=== PATIENT | female | born 1935 | race African-American/Black ===

== ENCOUNTER 2017-01-31 22:39 | Observation (INO) | payer MEDICARE ==
[~2017-01-31] VITALS: Ht 162.6 cm; Wt 70.0 kg
[~2017-01-31 22:39] MED LIST: ATOR40TA PO; CLOP75 PO; GLUCTAB PO; HYDR-2768 PO; HYDR10SO PO; SYNT25TA PO; ULTR50TA PO
[2017-01-31 22:42] VITALS: BP 185/88; PULSE 109; RESP 20; TEMP 101.7; O2SAT 100
[2017-01-31] MEDS ORDERED: NITROGLYCERIN 0.4 MG SL 25 TABS/BTL SL ONE (22:56)
[2017-01-31 23:02] VITALS: BP 133/99; PULSE 117; RESP 22; O2SAT 98
[2017-01-31] MEDS ORDERED: SODIUM CHLORIDE 0.9% FLUSH 10 ML FLUSH IVF PRN (23:15)
[2017-01-31] MEDS ORDERED: ACETAMINOPHEN 325 MG TAB PO ONE ×2 (23:15)
[2017-01-31] MEDS ORDERED: SODIUM CHLORID 0.9% 500 ML INJ 500 ML IV ONE (23:15)
[2017-01-31] MEDS ORDERED: ASPIRIN 81 MG CHEW TAB PO ONE (23:15)
[2017-01-31] MEDS: NITROGLYCERIN 0.4 MG SL 25 TABS/BTL SL SCH ×2 (23:20→23:25)
[2017-01-31 23:23] LABS: AUTOMATED NEUTROPHIL # 10.4 TH/MM3 (1.8-7.7); BASOPHIL # 0.1 TH/MM3 (0-0.2); EOSINOPHIL # 0.1 TH/MM3 (0-0.4); EOSINOPHIL % 0.4 % (0.0-4.0); HEMATOCRIT 32.9 % (35.0-46.0); HEMO FLAGS DIFF FINAL; LYMPH % 19.6 % (9.0-44.0); LYMPHOCYTE # 2.8 TH/MM3 (1.0-4.8); MEAN CELL VOLUME 93.8 FL (80.0-100.0); MEAN CORPUSCULAR HEMOGLOBIN 32.2 PG (27.0-34.0); MEAN CORPUSCULAR HGB CONC 34.3 % (32.0-36.0); PLATELET COUNT 517 TH/MM3 (150-450); RED BLOOD COUNT 3.51 MIL/MM3 (4.00-5.30); RED CELL DISTRIBUTION WIDTH 13.9 % (11.6-17.2)
--- NOTE | 2017-01-31 23:28 | PD ---
HPI Chief Complaint: Chest Pain Time Seen by Provider: 23:01 Travel History International Travel<30 days: No Contact w/Intl Traveler<30days: No Traveled to known affect area: No History of Present Illness HPI Patient is an 81-year-old female with history of hypertension, hyperlipidemia, diabetes, coronary artery disease, breast cancer with history of left sided mastectomy presents to the emergency room with multiple complaints. Patient reports that around 9:30 PM tonight, she began to have left sided arm pain. Reports that she then began to have pain all over body. Patient's daughter reports that she brought patient into the ER right away for evaluation. While in the emergency room, patient complains of left-sided chest pain. She reports that she cannot describe her chest pain, reports that pain is nonradiating in nature. Reports that she has history of coronary stents in the past placed by her bundling machine operator, Dr. Ellis. Reports that her pain feels different today. Patient denies shortness of breath with symptoms. Patient reports overall myalgias, denies any fevers or chills. PFSH Past Medical History Anemia: Yes Arthritis: Yes Anxiety: No Heart Rhythm Problems: No Cancer: Yes (colon, pancreatic, breast) Cardiovascular Problems: Yes (hypertention ) High Cholesterol: Yes Chemotherapy: Yes Chest Pain: Yes (on admission) Diabetes: Yes Patient Takes Glucophage: Yes (01/31/2017 @ 0900) Diminished Hearing: No Endocrine: Yes Gastrointestinal Disorders: Yes (HX GI BLEED R/T CANCER) Genitourinary: No Hepatitis: No Hiatal Hernia: No Hypertension: Yes Musculoskeletal: Yes Neurologic: No Psychiatric: No Reproductive: No Respiratory: No Radiation Therapy: Yes Thyroid Disease: Yes Tetanus Vaccination: Unknown Influenza Vaccination: No ?: Not Menopausal: Yes Past Surgical History Abdominal Surgery: Yes (COLECTOMY) AICD: No Arteriovenous Shunt: No Cardiac Surgery: No Ear Surgery: No Endocrine Surgery: No Eye Surgery: No Genitourinary Surgery: No Gynecologic Surgery: Yes (hysterectomy mascectomy) Hysterectomy: Yes Insulin Pump: No Joint Replacement: No Mastectomy: Yes (LEFT SIDE) Oral Surgery: Yes (TONSILLECTOMY) Pacemaker: No Thoracic Surgery: Yes (LEFT MASTECTOMY) Other Surgery: Yes (LEFT MASTECTOMY) Social History Alcohol Use: No Tobacco Use: No Substance Use: No Allergies-Medications (Allergen,Severity, Reaction): Coded Allergies: Penicillin (Verified Allergy, Severe, RASH, 10/27/15) Sulfa (Verified Allergy, Severe, RASH, 10/27/15) Reported Meds & Prescriptions Reported Meds & Active Scripts Active Reported Hydrochlorothiazide 25 Mg Tab 25 Mg PO DAILY Aspirin 81 Mg Chew 81 Mg CHEW DAILY Tramadol (Tramadol HCl) 50 Mg Tab 50 Mg PO TID PRN Metformin (Metformin HCl) 500 Mg Tab 500 Mg PO DAILY With a meal Tylenol-Codeine #3 (Acetaminophen-Codeine) 300-30 mg Tab 1 Tab PO Q12HR PRN Furosemide 20 Mg Tab 20 Mg PO BID PRN Levothyroxine (Levothyroxine Sodium) 100 Mcg Tab 100 Mcg PO DAILY K-Tab (Potassium Chloride) 10 Meq Tab 10 Meq PO DAILY PRN Atorvastatin (Atorvastatin Calcium) 40 Mg Tab 40 Mg PO HS Review of Systems General / Constitutional: No: Fever Eyes: No: Visual changes HENT: No: Headaches Cardiovascular: Positive: Chest Pain or Discomfort Respiratory: Positive: Shortness of Breath Gastrointestinal: No: Abdominal Pain Genitourinary: No: Dysuria Musculoskeletal: Positive: Myalgias, Weakness, No: Pain Skin: No Rash Neurologic: No: Weakness Psychiatric: No: Depression Endocrine: No: Polydipsia Hematologic/Lymphatic: No: Easy Bruising Physical Exam Narrative GENERAL: Moderate distress SKIN: Focused skin assessment warm/dry. HEAD: Atraumatic. Normocephalic. EYES: Pupils equal and round. No scleral icterus. No injection or drainage. ENT: No nasal bleeding or discharge. Mucous membranes pink and moist. NECK: Trachea midline. No JVD. CARDIOVASCULAR: Tachycardic. No murmur appreciated. RESPIRATORY: No accessory muscle use. Clear to auscultation. Breath sounds equal bilaterally. GASTROINTESTINAL: Abdomen soft, non-tender, nondistended. Hepatic and splenic margins not palpable. MUSCULOSKELETAL: No obvious deformities. No clubbing. No cyanosis. No edema. NEUROLOGICAL: Awake and alert. No obvious cranial nerve deficits. Motor grossly within normal limits. Normal speech. PSYCHIATRIC: Patient extremely anxious on exam Data Data Last Documented VS Vital Signs Date Time Temp Pulse Resp B/P Pulse Ox O2 Delivery O2 Flow Rate FiO2 01/31/17 23:06 97 Room Air 01/31/17 23:02 117 22 133/99 01/31/17 22:42 101.7 Orders Nitroglycerin Sl (Nitrostat Sl) (01/31/17 22:56) Electrocardiogram (01/31/17 23:01) B-Type Natriuretic Peptide (01/31/17 23:01) Ckmb (Isoenzyme) Profile (01/31/17 23:01) Complete Blood Count With Diff (01/31/17 23:01) Comprehensive Metabolic Panel (01/31/17 23:) Magnesium (Mg) (01/31/17 23:) Prothrombin Time / Inr (Pt) (01/31/17:) Act Partial Throm Time (Ptt) (01/31/17 23:) Troponin I (01/31/17 23:) Lipase (01/31/17 23:) Chest, Single Ap (01/31/17:) Ecg Monitoring (01/31/17 23:) Bilateral Bp Monitoring (01/31/17:) Iv Access Insert/Monitor (01/31/17:) Oximetry (01/31/17 23:) Aspirin Chew (Aspirin Chew) (01/31/17 23:15) Sodium Chloride 0.9% Flush (Ns Flush) (01/31/17 23:15) Nitroglycerin Sl (Nitrostat Sl) (01/31/17 23:15) Sodium Chlorid 0.9% 500 Ml Inj (Ns 500 M (01/31/17 23:15) Acetaminophen (Tylenol) (01/31/17 23:15) Lactic Acid Sepsis Protocol (01/31/17 23:13) Influenzae A/B Antigen (01/31/17 23:13) Blood Culture (01/31/17 23:13) Acetaminophen (Tylenol) (01/31/17 23:15) CKMB (01/31/17 23:00) CKMB% (01/31/17 23:00) Vancomycin Inj (Vancomycin Inj) (02/01/17 00:19) Aztreonam Inj (Azactam Inj) (02/01/17 00:19) Metronidazole 500 Mg Inj (Flagyl 500 Mg (02/01/17 00:19) Ketorolac Inj (Toradol Inj) (02/01/17 00:30) Admit Order (Ed Use Only) (02/01/17 00:38) Labs Laboratory Tests Test 01/31/17 01/31/17 23:00 23:10 White Blood Count 14.0 TH/MM3 Red Blood Count 3.51 MIL/MM3 Hemoglobin 11.3 GM/DL Hematocrit 32.9 % Mean Corpuscular Volume 93.8 FL Mean Corpuscular Hemoglobin 32.2 PG Mean Corpuscular Hemoglobin 34.3 % Concent Red Cell Distribution Width 13.9 % Platelet Count 517 TH/MM3 Mean Platelet Volume 8.6 FL Neutrophils (%) (Auto) 74.0 % Lymphocytes (%) (Auto) 19.6 % Monocytes (%) (Auto) 5.0 % Eosinophils (%) (Auto) 0.4 % Basophils (%) (Auto) 1.0 % Neutrophils # (Auto) 10.4 TH/MM3 Lymphocytes # (Auto) 2.8 TH/MM3 Monocytes # (Auto) 0.7 TH/MM3 Eosinophils # (Auto) 0.1 TH/MM3 Basophils # (Auto) 0.1 TH/MM3 CBC Comment DIFF FINAL Differential Comment Prothrombin Time 10.7 SEC Prothromb Time International 1.0 RATIO Ratio Activated Partial 28.0 SEC Thromboplast Time Sodium Level 136 MEQ/L Potassium Level 3.7 MEQ/L Chloride Level 102 MEQ/L Carbon Dioxide Level 23.4 MEQ/L Anion Gap 11 MEQ/L Blood Urea Nitrogen 15 MG/DL Creatinine 1.25 MG/DL Estimat Glomerular Filtration 50 ML/MIN Rate Random Glucose 117 MG/DL Calcium Level 9.2 MG/DL Magnesium Level 1.5 MG/DL Total Bilirubin 0.7 MG/DL Aspartate Amino Transf 28 U/L (AST/SGOT) Alanine Aminotransferase 23 U/L (ALT/SGPT) Alkaline Phosphatase 127 U/L Total Creatine Kinase 229 U/L Creatine Kinase MB 0.6 NG/ML Creatine Kinase MB % 0.3 % Troponin I LESS THAN 0.02 NG/ML B-Type Natriuretic Peptide 29 PG/ML Total Protein 7.3 GM/DL Albumin 3.6 GM/DL Lipase 85 U/L Lactic Acid Level 1.8 mmol/L [facility] Medical Decision Making Medical Screen Exam Complete: Yes Emergency Medical Condition: Yes Interpretation(s) EKG at 2253: Sinus tachycardia at 100bpm, qt/qtc: 326/383, Vital Signs Date Time Temp Pulse Resp B/P Pulse Ox O2 Delivery O2 Flow Rate FiO2 01/31/17 23:06 97 Room Air 01/31/17 23:02 117 22 133/99 98 01/31/17 22:42 101.7 109 20 185/88 100 Room Air Differential Diagnosis Differential includes ACS, arrhythmia, electrolyte abnormality, pneumonia, influenza, viral syndrome, PE, aortic dissection though unlikely Narrative Course Patient is an 81-year-old female who presents to emergency room with her daughter with multiple complaints. Patient reports that prior to coming to the emergency room, she began to have left-sided arm pain around 9:30 PM. Reports that she has been having diffuse body pain, reports that upon arrival to emergency room, she began to have left sided chest pain which she could not describe the pain. Patient was placed on a cardiac cath tech upon arrival to emergency room. EKG with no acute ST or t wave changes. SL nitro ordered to see if this helps with her chest pain Patient is tachycardic and febrile upon arrival to ER. Patient meets SIRS criteria. Lactic acid as well as blood cultures ordered. Tylenol ordered for patient as well. Vital Signs Date Time Temp Pulse Resp B/P Pulse Ox O2 Delivery O2 Flow Rate FiO2 01/31/17 23:06 97 Room Air 01/31/17 23:02 117 22 133/99 98 01/31/17 22:42 101.7 109 20 185/88 100 Room Air Laboratory Tests Test 01/31/17 01/31/17 23:00 23:10 White Blood Count 14.0 TH/MM3 (4.0-11.0) Red Blood Count 3.51 MIL/MM3 (4.00-5.30) Hemoglobin 11.3 GM/DL (11.6-15.3) Hematocrit 32.9 % (35.0-46.0) Mean Corpuscular Volume 93.8 FL (80.0-100.0) Mean Corpuscular Hemoglobin 32.2 PG (27.0-34.0) Mean Corpuscular Hemoglobin 34.3 % Concent (32.0-36.0) Red Cell Distribution Width 13.9 % (11.6-17.2) Platelet Count 517 TH/MM3 (150-450) Mean Platelet Volume 8.6 FL (7.0-11.0) Neutrophils (%) (Auto) 74.0 % (16.0-70.0) Lymphocytes (%) (Auto) 19.6 % (9.0-44.0) Monocytes (%) (Auto) 5.0 % (0.0-8.0) Eosinophils (%) (Auto) 0.4 % (0.0-4.0) Basophils (%) (Auto) 1.0 % (0.0-2.0) Neutrophils # (Auto) 10.4 TH/MM3 (1.8-7.7) Lymphocytes # (Auto) 2.8 TH/MM3 (1.0-4.8) Monocytes # (Auto) 0.7 TH/MM3 (0-0.9) Eosinophils # (Auto) 0.1 TH/MM3 (0-0.4) Basophils # (Auto) 0.1 TH/MM3 (0-0.2) CBC Comment DIFF FINAL Differential Comment Prothrombin Time 10.7 SEC (9.8-11.6) Prothromb Time International 1.0 RATIO Ratio Activated Partial 28.0 SEC Thromboplast Time (24.3-30.1) Sodium Level 136 MEQ/L (136-145) Potassium Level 3.7 MEQ/L (3.5-5.1) Chloride Level 102 MEQ/L (98-107) Carbon Dioxide Level 23.4 MEQ/L (21.0-32.0) Anion Gap 11 MEQ/L (5-15) Blood Urea Nitrogen 15 MG/DL (7-18) Creatinine 1.25 MG/DL (0.50-1.00) Estimat Glomerular Filtration 50 ML/MIN (>89) Rate Random Glucose 117 MG/DL (74-106) Calcium Level 9.2 MG/DL (8.5-10.1) Magnesium Level 1.5 MG/DL (1.5-2.5) Total Bilirubin 0.7 MG/DL (0.2-1.0) Aspartate Amino Transf 28 U/L (15-37) (AST/SGOT) Alanine Aminotransferase 23 U/L (10-53) (ALT/SGPT) Alkaline Phosphatase 127 U/L (45-117) Total Creatine Kinase 229 U/L (26-192) Creatine Kinase MB 0.6 NG/ML (0.5-3.6) Creatine Kinase MB % 0.3 % (0.0-4.0) Troponin I LESS THAN 0.02 NG/ML (0.02-0.05) B-Type Natriuretic Peptide 29 PG/ML (0-100) Total Protein 7.3 GM/DL (6.4-8.2) Albumin 3.6 GM/DL (3.4-5.0) Lipase 85 U/L (73-393) Lactic Acid Level 1.8 mmol/L (0.4-2.0) Last Impressions Chest X-Ray 01/31/17 2301 Signed Impressions: Service Date/Time: January 22:59 - CONCLUSION: 1. No acute cardiopulmonary disease. Sonido Zazueta MD Patient with a white blood cell count of 14,000, lactic acid is 1.8, troponin 0.02, x-ray of the chest benign. Patient does have SIRS criteria. She has been pancultured. Azactam, Flagyl and vancomycin ordered as she has a penicillin allergy. Patient was also given an aspirin for her chest pain as well as 1 SL nitroglycerin. Patient has resolution of chest pain at this time. patient will require obs case reviewed with dr. jha who accepts pt to service Sepsis Criteria SIRS Criteria (2 or more): Temp > 100.9 or < 96.8, Heart rate over 90 Criteria Outcome: Meets SIRS criteria Diagnosis Primary Impression: SIRS (systemic inflammatory response syndrome) Additional Impression: Chest pain Eliana Lowe DO Jan 31, 2017 23:28
--- NOTE | 2017-01-31 23:29 | RADRPT ---
EXAM DATE/TIME: 01/31/2017 22:59 [facility] COMPARISON: CHEST SINGLE AP, June 06, 2015, 15:31. INDICATIONS : Chest pain. MEDICAL HISTORY : Diabetes mellitus type II. Hypertension SURGICAL HISTORY : Stent ENCOUNTER: Initial ACUITY: 1 day PAIN SCORE: 0/10 LOCATION: Bilateral chest FINDINGS: A single view of the chest demonstrates the lungs to be symmetrically aerated without evidence of mas s, infiltrate or effusion. The cardiomediastinal contours are unremarkable. Osseous structures are intact. CONCLUSION: 1. No acute cardiopulmonary disease. Sonido Zazueta MD on January 31, 2017 at 23:27 Board Certified Radiologist. This report was verified electronically.
[2017-01-31 23:35] LABS: ANION GAP 11 MEQ/L (5-15); AST (GOT) 28 U/L (15-37); BICARBONATE 23.4 MEQ/L (21.0-32.0); BLOOD UREA NITROGEN 15 MG/DL (7-18); CHLORIDE 102 MEQ/L (98-107); GLOMERULAR FILTRATION RATE 50 ML/MIN (>89); MAGNESIUM 1.5 MG/DL (1.5-2.5); POTASSIUM 3.7 MEQ/L (3.5-5.1); SODIUM (NA) 136 MEQ/L (136-145)
[2017-01-31 23:36] LABS: ALT (GPT) 23 U/L (10-53)
[2017-01-31 23:39] LABS: PROTHROMBIN TIME - PATIENT 10.7 SEC (9.8-11.6)
[2017-01-31 23:40] LABS: ALKALINE PHOSPHATASE 127 U/L (45-117); CREATINE KINASE 229 U/L (26-192); TOTAL BILIRUBIN ADULT 0.7 MG/DL (0.2-1.0)
[2017-01-31 23:52] LABS: CKMB 0.6 NG/ML (0.5-3.6)
[2017-02-01] VITALS (14 sets, daily range): BP systolic 120–189; BP diastolic 56–85; PULSE 68–100; RESP 16–20; TEMP 97.8–99.7; O2SAT 95–100
[2017-02-01] MEDS ORDERED: VANCOMYCIN INJ 1,000 MG in SODIUM CHLOR 0.9% 250 ML INJ 250 ML IV STA (00:19)
[2017-02-01] MEDS ORDERED: metroNIDAZOLE 500 MG INJ 100 ML IV STA (00:19)
[2017-02-01] MEDS ORDERED: AZTREONAM INJ 2,000 MG in SODIUM CHLORIDE 0.9% INJ 100 ML IV STA (00:19)
[2017-02-01] MEDS ORDERED: LEVO100T5 PO (00:26)
[2017-02-01] MEDS ORDERED: FURO20TA PO (00:26)
[2017-02-01] MEDS ORDERED: ATOR40TA16 PO (00:26)
[2017-02-01] MEDS ORDERED: TYLETAB34 PO (00:26)
[2017-02-01] MEDS ORDERED: METF500T PO (00:26)
[2017-02-01] MEDS ORDERED: ASPI81CH CHEW (00:26)
[2017-02-01] MEDS ORDERED: HYDR25TA5 PO (00:26)
[2017-02-01] MEDS ORDERED: TRAM50TA PO (00:26)
[2017-02-01] MEDS ORDERED: K-TA10TA PO (00:26)
[2017-02-01] MEDS ORDERED: KETOROLAC TROMETHAMINE 30 MG/ML (IVP) VIAL IV PUSH ONE (00:30)
[2017-02-01 01:52] LABS: BLOOD, URINE NEG (NEG); COMMENT (UR) CULTURE INDICATED; CULTURE IF INDICATED CULTURE INDICATED; GLUCOSE,URINE NEG (NEG); KETONE, URINE NEG (NEG); NITRITE,URINE NEG (NEG); SQUAMOUS EPITHELIAL CELL URINE <1 /hpf (0-5); URINE COLOR YELLOW (YELLW/STRAW)
[2017-02-01] MEDS ORDERED: SODIUM CHLORIDE 0.9% FLUSH 10 ML FLUSH IV FLUSH PRN (02:00)
[2017-02-01] MEDS ORDERED: NALOXONE HCL 0.4 MG/ML AMP IV PRN (02:00)
[2017-02-01] MEDS ORDERED: SENNOSIDES 8.6 MG TAB PO PRN (02:00)
[2017-02-01] MEDS ORDERED: GLUCAGON 1 MG/ML VIAL OTHER PRN ×2 (02:00)
[2017-02-01] MEDS ORDERED: LACTULOSE SYRUP 20 GM/30 ML CUP PO PRN (02:00)
[2017-02-01] MEDS ORDERED: BISACODYL 10 MG SUPP RECTAL PRN (02:00)
[2017-02-01] MEDS ORDERED: POTASSIUM CHLORIDE 10 MEQ CONTROLLED RELEASE TAB PO PRN (02:00)
[2017-02-01] MEDS ORDERED: ACETAMINOPHEN/CODEINE 300 MG/30 MG TAB PO PRN (02:00)
[2017-02-01] MEDS ORDERED: ACETAMINOPHEN 325 MG TAB PO PRN (02:00)
[2017-02-01] MEDS ORDERED: MAGNESIUM HYDROXIDE SUSP 30 ML CUP PO PRN (02:00)
[2017-02-01] MEDS ORDERED: FUROSEMIDE 20 MG TAB PO PRN (02:00)
[2017-02-01] MEDS ORDERED: DEXTROSE 50% IN WATER 50 ML VIAL(D50) IV PRN (02:00)
[2017-02-01] MEDS ORDERED: Vancomycin Consult Pharmacy 1 EA OTHER SCH (02:00)
[2017-02-01] MEDS: NITROGLYCERIN 0.4 MG SL 25 TABS/BTL SL SCH (02:14)
[2017-02-01] MEDS: SODIUM CHLOR 0.45% 1000 ML INJ 1,000 ML IV SCH ×2 (02:32→18:17)
[2017-02-01] MEDS: LEVOTHYROXINE SODIUM 100 MCG TAB PO SCH (06:01)
[2017-02-01] MEDS: INSULIN ASPART SUPPLEMENTAL SCALE SQ SCH ×4 (06:01→20:31)
[2017-02-01] MEDS: SODIUM CHLORIDE 0.9% FLUSH 10 ML FLUSH IV FLUSH SCH ×2 (09:00→20:34)
[2017-02-01] MEDS: metFORMIN HCL 500 MG TAB PO SCH (09:23)
[2017-02-01] MEDS: ASPIRIN 81 MG CHEW TAB CHEW SCH (09:23)
[2017-02-01] MEDS: metroNIDAZOLE 500 MG INJ 100 ML IV SCH ×3 (09:24→23:05)
[2017-02-01] MEDS: DOCUSATE SODIUM 50 MG/SENNA 8.6 MG TAB PO SCH ×2 (09:24→20:35)
[2017-02-01 09:36] LABS: HEMATOCRIT 32.9 % (35.0-46.0); MEAN CELL VOLUME 96.1 FL (80.0-100.0); MEAN CORPUSCULAR HEMOGLOBIN 31.1 PG (27.0-34.0); MEAN CORPUSCULAR HGB CONC 32.3 % (32.0-36.0); PLATELET COUNT 511 TH/MM3 (150-450); RED BLOOD COUNT 3.42 MIL/MM3 (4.00-5.30); RED CELL DISTRIBUTION WIDTH 14.3 % (11.6-17.2); WHITE BLOOD COUNT 17.4 TH/MM3 (4.0-11.0)
[2017-02-01 09:38] LABS: HEMO FLAGS AUTO DIFF
[2017-02-01 09:42] LABS: ANION GAP 10 MEQ/L (5-15); BICARBONATE 23.5 MEQ/L (21.0-32.0); BLOOD UREA NITROGEN 16 MG/DL (7-18); CHLORIDE 105 MEQ/L (98-107); GLOMERULAR FILTRATION RATE 56 ML/MIN (>89); POTASSIUM 3.8 MEQ/L (3.5-5.1); SODIUM (NA) 138 MEQ/L (136-145)
[2017-02-01 10:38] LABS: BANDS 16 % (0-6); EOSINOPHILS 1 % (0-4); METAMYELOCYTES 1 % (0-1); NEUTROPHIL # MANUAL DIFF 14.8 TH/MM3 (1.8-7.7); PLATELET ESTIMATE SMEAR HIGH (NORMAL); PLATELET MORPHOLOGY NORMAL (NORMAL); POLYS (SEG NEUTROPHILS) 68 % (16-70); SCAN/DIFF FINAL DIFF MANUAL; WBC DIFF SAMPLE 100
[2017-02-01 10:39] LABS: ACANTHOCYTES OCC (NORMAL); OVALOCYTES 1+ (NORMAL); TOXIC VACUOLATION PRESENT (NONE SEEN)
[2017-02-01] MEDS: AZTREONAM INJ 1,000 MG in SODIUM CHLORIDE 0.9% INJ 100 ML IV SCH (12:51)
--- NOTE | 2017-02-01 17:46 | HHI.HP ---
HPI Service [facility] Primary Care Physician Veto Choudhury M.D. Admission Diagnosis Chest pain, SIRS Chief Complaint: chest pain Travel History International Travel<30 Days: No Contact w/Intl Traveler <30 Da: No Traveled to Known Affected Are: No History of Present Illness Patient is an 81-year-old female with history of hypertension, hyperlipidemia, diabetes, coronary artery disease, breast cancer with history of left sided mastectomy presents to the emergency room with multiple complaints. Patient reports that around 9:30 PM tonight, she began to have left sided arm pain. Reports that she then began to have pain all over body. Patient's daughter reports that she brought patient into the ER right away for evaluation. While in the emergency room, patient complains of left-sided chest pain. She reports that she cannot describe her chest pain, reports that pain is nonradiating in nature. Reports that she has history of coronary stents in the past placed by her professor of music, Dr. Ellis. Reports that her pain feels different today. Patient denies shortness of breath with symptoms. Patient reports overall myalgias, denies any fevers or chills. Review of Systems Constitutional: DENIES: Diaphoretic episodes, Fatigue, Fever, Weight gain, Weight loss, Chills, Dizziness, Change in appetite, Night Sweats Endocrine: DENIES: Heat/cold intolerance, Polydipsia, Polyuria, Polyphagia Eyes: DENIES: Blurred vision, Diplopia, Eye inflammation, Eye pain, Vision loss , Photosensitivity, Double Vision Ears, nose, mouth, throat: DENIES: Tinnitus, Hearing loss, Vertigo, Nasal discharge, Oral lesions, Throat pain, Hoarseness, Ear Pain, Running Nose, Epistaxis, Sinus Pain, Toothache, Odynophagia Respiratory: DENIES: Apneas, Cough, Snoring, Wheezing, Hemoptysis, Sputum production, Shortness of breath Cardiovascular: COMPLAINS OF: Chest pain, DENIES: Palpitations, Syncope, Dyspnea on Exertion, PND, Lower Extremity Edema, Orthopnea, Claudication Gastrointestinal: DENIES: Abdominal pain, Black stools, Bloody stools, BRB per rectum, Constipation, Diarrhea, GERD, Nausea, Reflux, Vomiting, Difficulty Swallowing, Anorexia Genitourinary: DENIES: Urinary frequency, Urinary incontinence, Urgency, Hematuria, Dysuria, Nocturia Musculoskeletal: DENIES: Joint pain, Muscle aches, Stiffness, Joint Swelling, Back pain, Neck pain Integumentary: DENIES: Abnormal pigmentation, Pruritus, Rash, Nail changes, Breast masses, Breast skin changes, Nipple discharge Hematologic/lymphatic: DENIES: Bruising, Lymphadenopathy Immunologic/allergic: DENIES: Eczema, Urticaria Neurologic: DENIES: Abnormal gait, Headache, Localized weakness, Paresthesias, Seizures, Speech Problems, Tremor, Poor Balance Psychiatric: DENIES: Anxiety, Confusion, Mood changes, Depression, Hallucinations, Agitation, Suicidal Ideation, Homicidal Ideation, Delusions, History of Bipolar, History of Schizophrenia Past Family Social History Past Medical History 1. Type 2 diabetes. 2. Hypothyroidism. 3. hypertension. 4. hyperlipidemia Past Surgical History 1. 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 2. Mastectomy for possible breast cancer in the past and she has had no recurrence of that. Reported Medications Reported Meds & Active Scripts Active Reported Hydrochlorothiazide 25 Mg Tab 25 Mg PO DAILY Aspirin 81 Mg Chew 81 Mg CHEW DAILY Tramadol (Tramadol HCl) 50 Mg Tab 50 Mg PO TID PRN Metformin (Metformin HCl) 500 Mg Tab 500 Mg PO DAILY With a meal Tylenol-Codeine #3 (Acetaminophen-Codeine) 300-30 mg Tab 1 Tab PO Q12HR PRN Furosemide 20 Mg Tab 20 Mg PO BID PRN Levothyroxine (Levothyroxine Sodium) 100 Mcg Tab 100 Mcg PO DAILY K-Tab (Potassium Chloride) 10 Meq Tab 10 Meq PO DAILY PRN Atorvastatin (Atorvastatin Calcium) 40 Mg Tab 40 Mg PO HS Allergies: Coded Allergies: Penicillin (Verified Allergy, Severe, RASH, 10/27/15) Sulfa (Verified Allergy, Severe, RASH, 10/27/15) Family History Noncontributory Social History - 2 grown daughters live locally, one of whom is a [employer] ICU nurse - No tobacco use - No alcohol use - No illicit street drugs Physical Exam Vital Signs Vital Signs Date Time Temp Pulse Resp B/P Pulse Ox O2 Delivery O2 Flow Rate FiO2 02/01/17 16:20 99.7 86 20 139/64 98 02/01/17 12:04 99.4 88 18 133/59 97 02/01/17 11:19 92 02/01/17 08:15 98.6 90 16 120/56 95 02/01/17 06:42 97.8 68 18 133/74 97 02/01/17 04:22 78 02/01/17 03:03 86 18 129/85 96 02/01/17 02:09 80 18 129/58 97 Room Air 02/01/17 01:30 98.9 80 18 148/72 97 Room Air 02/01/17 00:35 99.5 73 18 156/70 100 Room Air 01/31/17 23:06 97 Room Air 01/31/17 23:02 117 22 133/99 98 01/31/17 22:42 101.7 109 20 185/88 100 Room Air Physical Exam GENERAL: This is a well-nourished, well-developed patient, in no apparent distress. SKIN: No rashes, ecchymoses or lesions. Cool and dry. HEAD: Atraumatic. Normocephalic. No temporal or scalp tenderness. EYES: Pupils equal round and reactive. Extraocular motions intact. No scleral icterus. No injection or drainage. ENT: Nose without bleeding, purulent drainage or septal hematoma. Throat without erythema, tonsillar hypertrophy or exudate. Uvula midline. Airway patent. NECK: Trachea midline. No JVD or lymphadenopathy. Supple, nontender, no meningeal signs. CARDIOVASCULAR: Regular rate and rhythm without murmurs, gallops, or rubs. RESPIRATORY: Clear to auscultation. Breath sounds equal bilaterally. No wheezes , rales, or rhonchi. GASTROINTESTINAL: Abdomen soft, non-tender, nondistended. No hepato-splenomegaly , or palpable masses. No guarding. MUSCULOSKELETAL: Extremities without clubbing, cyanosis, or edema. No joint tenderness, effusion, or edema noted. No calf tenderness. Negative Homans sign bilaterally. NEUROLOGICAL: Awake and alert. Cranial nerves II through XII intact. Motor and sensory grossly within normal limits. Five out of 5 muscle strength in all muscle groups. Normal speech. Laboratory Laboratory Tests Test 01/31/17 01/31/17 02/01/17 02/01/17 23:00 23:10 01:30 09:04 White Blood Count 14.0 17.4 Red Blood Count 3.51 3.42 Hemoglobin 11.3 10.6 Hematocrit 32.9 32.9 Mean Corpuscular Volume 93.8 96.1 Mean Corpuscular Hemoglobin 32.2 31.1 Mean Corpuscular Hemoglobin 34.3 32.3 Concent Red Cell Distribution Width 13.9 14.3 Platelet Count 517 511 Mean Platelet Volume 8.6 8.2 Neutrophils (%) (Auto) 74.0 Lymphocytes (%) (Auto) 19.6 Monocytes (%) (Auto) 5.0 Eosinophils (%) (Auto) 0.4 Basophils (%) (Auto) 1.0 Neutrophils # (Auto) 10.4 Lymphocytes # (Auto) 2.8 Monocytes # (Auto) 0.7 Eosinophils # (Auto) 0.1 Basophils # (Auto) 0.1 CBC Comment DIFF FINAL AUTO DIFF Differential Comment FINAL DIFF MANUAL Prothrombin Time 10.7 Prothromb Time International 1.0 Ratio Activated Partial 28.0 Thromboplast Time Sodium Level 136 138 Potassium Level 3.7 3.8 Chloride Level 102 105 Carbon Dioxide Level 23.4 23.5 Anion Gap 11 10 Blood Urea Nitrogen 15 16 Creatinine 1.25 1.13 Estimat Glomerular Filtration 50 56 Rate Random Glucose 117 100 Calcium Level 9.2 8.8 Magnesium Level 1.5 Total Bilirubin 0.7 Aspartate Amino Transf 28 (AST/SGOT) Alanine Aminotransferase 23 (ALT/SGPT) Alkaline Phosphatase 127 Total Creatine Kinase 229 Creatine Kinase MB 0.6 Creatine Kinase MB % 0.3 Troponin I LESS THAN 0.02 LESS THAN 0.02 B-Type Natriuretic Peptide 29 Total Protein 7.3 Albumin 3.6 Lipase 85 Lactic Acid Level 1.8 Urine Color YELLOW Urine Turbidity CLEAR Urine pH 8.0 Urine Specific [place] 1.011 Urine Protein NEG Urine Glucose (UA) NEG Urine Ketones NEG Urine Occult Blood NEG Urine Nitrite NEG Urine Bilirubin NEG Urine Urobilinogen LESS THAN 2.0 Urine Leukocyte Esterase TRACE Urine RBC LESS THAN 1 Urine WBC 18 Urine Squamous Epithelial <1 Cells Microscopic Urinalysis Comment CULTURE INDICATED Differential Total Cells 100 Counted Neutrophils % (Manual) 68 Band Neutrophils % 16 Lymphocytes % 12 Monocytes % 2 Eosinophils % 1 Neutrophils # (Manual) 14.8 Metamyelocytes 1 Toxic Vacuolation PRESENT Platelet Estimate HIGH Platelet Morphology Comment NORMAL Ovalocytes 1+ Acanthocytes OCC Date/Time Procedure Status Source Growth 02/01/17 01:30 Urine Culture Received Urine Clean Catch Pending 01/31/17 23:15 Influenza Types A,B Antigen ([facility]) - Final Complete Nasal Aspirate NEGATIVE FOR FLU A AND B ANTIGEN.... 7/20/17 23:15 Aerobic Blood Culture - Preliminary Resulted Blood Peripheral NO GROWTH IN 1 DAY 01/31/17 23:15 Anaerobic Blood Culture - Preliminary Resulted Blood Peripheral NO GROWTH IN 1 DAY Result Diagram: 02/01/17 0902/01/17903 Septic Shock Reassessment Heart: Regular rate and rhythm Lungs: Clear Skin: Warm Peripheral Pulses: Bounding Right Radial Bounding Left Radial Bounding Right Popliteal Bounding Left Popliteal Bounding Right Dorsalis Pedis Bounding Left Dorsalis Pedis Bounding Right Posterior Tibial Bounding Left Posterior Tibial Capillary Refill: Brisk Assessment and Plan Problem List: (1) Chest pain Status: Acute Plan: - h/o CAD with coronary stents, h/o HTN - obtain serial cardiac enzymes - obtain serial EKGs - obtain echocardiogram - obtain lexiscan, once medically stable - obtain fasting lipid panel in AM - ASA (2) Fever Status: Acute Plan: - unclear etiology - NO source of infection identified at this time - Pt denies fever, chills, dysuria, cough, or diarrhea - NO fever since admission - 99.7F at 4PM - continue aztreonam & vancomycin - follow cultures - observe Glenn Vyas DO Feb 01, 2017 17:46
[2017-02-01] MEDS: ATORVASTATIN 40 MG TAB PO SCH (20:34)
[2017-02-01 20:55] LABS: CKMB 1.5 NG/ML (0.5-3.6)
[2017-02-02] VITALS (9 sets, daily range): BP systolic 133–175; BP diastolic 56–74; PULSE 76–97; RESP 16–18; TEMP 98–98.5; O2SAT 96–99
[2017-02-02] MEDS: AZTREONAM INJ 1,000 MG in SODIUM CHLORIDE 0.9% INJ 100 ML IV SCH ×2 (00:27→12:49)
[2017-02-02] MEDS: VANCOMYCIN 1,000 MG/NS 250 ML IV SCH ×2 (01:41)
[2017-02-02] MEDS: SODIUM CHLOR 0.45% 1000 ML INJ 1,000 ML IV SCH ×2 (04:32→12:48)
[2017-02-02 06:06] LABS: AUTOMATED NEUTROPHIL # 7.6 TH/MM3 (1.8-7.7); BASOPHIL % 0.4 % (0.0-2.0); EOSINOPHIL # 0.1 TH/MM3 (0-0.4); EOSINOPHIL % 1.4 % (0.0-4.0); HEMATOCRIT 29.1 % (35.0-46.0); HEMO FLAGS DIFF FINAL; LYMPH % 16.6 % (9.0-44.0); LYMPHOCYTE # 1.6 TH/MM3 (1.0-4.8); MEAN CELL VOLUME 94.6 FL (80.0-100.0); MEAN CORPUSCULAR HGB CONC 33.9 % (32.0-36.0); MONO % 5.6 % (0.0-8.0); PLATELET COUNT 406 TH/MM3 (150-450); RED BLOOD COUNT 3.07 MIL/MM3 (4.00-5.30); RED CELL DISTRIBUTION WIDTH 14.3 % (11.6-17.2); WHITE BLOOD COUNT 9.9 TH/MM3 (4.0-11.0)
[2017-02-02 06:14] LABS: BICARBONATE 23.2 MEQ/L (21.0-32.0); MAGNESIUM 1.6 MG/DL (1.5-2.5); POTASSIUM 3.6 MEQ/L (3.5-5.1)
[2017-02-02 06:19] LABS: HDL CHOLESTEROL 61.8 MG/DL (40.0-60.0)
[2017-02-02] MEDS: LEVOTHYROXINE SODIUM 100 MCG TAB PO SCH (06:28)
[2017-02-02] MEDS: INSULIN ASPART SUPPLEMENTAL SCALE SQ SCH ×4 (06:29→21:00)
[2017-02-02] MEDS: metroNIDAZOLE 500 MG INJ 100 ML IV SCH ×2 (08:13→17:25)
[2017-02-02] MEDS: ASPIRIN 81 MG CHEW TAB CHEW SCH (08:14)
[2017-02-02] MEDS: metFORMIN HCL 500 MG TAB PO SCH (08:14)
[2017-02-02] MEDS: DOCUSATE SODIUM 50 MG/SENNA 8.6 MG TAB PO SCH ×2 (08:14→21:00)
[2017-02-02] MEDS: SODIUM CHLORIDE 0.9% FLUSH 10 ML FLUSH IV FLUSH SCH ×2 (08:14→21:00)
[2017-02-02] MEDS ORDERED: REGADENOSON INJ 0.4 MG/5 ML SYR ONE (14:31)
--- NOTE | 2017-02-02 16:28 | ECHRPT ---
Indication: CHEST PAIN CONCLUSIONS Normal left ventricular size. Wall thickness is normal. The left ventricular systolic function is normal with an estimated ejection fraction in the range of 55-60%. No regional wall motion abnormalities are present. Doppler parameters are consistent with impaired left ventricular relaxtion (grade 1 diastolic dysfun ction). There is a sigmoid septum present without obsructionThe left atrial size is fejz-gz-szrjqbapgs dilat ed. Mild thickening of the mitral valve leaflets. Mild mitral valve regurgitation. There is mild tricuspid valve regurgitation. Normal estimated pulmonary pressures. BP: 133 / 56 HR: 76 Rhythm: Sinus MEASUREMENTS (Male / Female) Normal Values Technical Quality:Fair 2D ECHO LV Diastolic Diameter PLAX 3.9 cm 4.2 - 5.9 / 3.9 - 5.3 cm LV Systolic Diameter PLAX 2.9 cm IVS Diastolic Thickness 1.0 cm 0.6 - 1.0 / 0.6 - 0.9 cm LVPW Diastolic Thickness 1.0 cm 0.6 - 1.0 / 0.6 - 0.9 cm LV Relative Wall Thickness 0.5 LVOT Diameter 1.6 cm Aortic Root Diameter 2.6 cm LA Systolic Diameter LX 2.9 cm 3.0 - 4.0 / 2.7 - 3.8 cm LA Volume Index 22.4 cm/m 16 - 28 cm/m M-MODE AV Cusp Separation MM 1.8 cm DOPPLER AV Peak Velocity 112.0 cm/s AV Peak Gradient 5.0 mmHg AV Mean Gradient 3.0 mmHg AV Velocity Time Integral 22.7 cm LVOT Peak Velocity 84.2 cm/s LVOT Peak Gradient 2.8 mmHg LVOT Velocity Time Integral 18.2 cm LVOT Cardiac Index 1568.9 cm/minm AV Area Cont Eq vti 1.6 cm AV Area Cont Eq pk 1.5 cm LV E' Lateral Velocity 9.9 cm/s LV E' Septal Velocity 7.2 cm/s TR Peak Velocity 232.0 cm/s TR Peak Gradient 21.5 mmHg PV Peak Velocity 91.0 cm/s PV Peak Gradient 3.3 mmHg FINDINGS LEFT VENTRICLE Normal left ventricular size. Wall thickness is normal. The left ventricular systolic function is normal with an estimated ejection fraction in the range of 55-60%. No regional wall motion abnormalities are present. Doppler parameters are consistent with impaired left ventricular relaxtion (grade 1 diastolic dysfun ction). There is a sigmoid septum present without obsruction LEFT ATRIUM The left atrial size is eofo-wd-mtdbrsscca dilated. MITRAL VALVE Mild thickening of the mitral valve leaflets. Mild mitral valve regurgitation. TRICUSPID VALVE Structurally normal tricuspid valve. There is mild tricuspid valve regurgitation. Normal estimated pulmonary pressures. Lois Becerra MD, FACC (Electronically Signed) Final Date:02 February 2017 16:27
--- NOTE | 2017-02-02 16:36 | RADRPT ---
EXAM DATE/TIME: 02/02/2017 13:59 [facility] COMPARISON: No previous studies available for comparison. INDICATIONS : Left sided chest pain. Coronary artery disease. Angina. DOSE: 27.2 mCi Tc99m Myoview at stress. 8.5 mCi Tc99m Myoview at rest. 0.4 mg Lexiscan STRESS SYMPTOMS: Stomach pain. EJECTION FRACTION: > 70% MEDICAL HISTORY : Hypertension. Diabetes mellitus type 2. Carcinoma, breast. SURGICAL HISTORY : Mastectomy, left. Hysterectomy. Tonsillectomy. ENCOUNTER: Initial ACUITY: 1 day PAIN SCALE: 5/10 LOCATION: Left chest TECHNIQUE: The patient underwent pharmacologic stress with infusion of prescribed dose. Continuous ECG tracing was monitored during stress. Gated SPECT imaging was performed after stress and conventional SPECT i maging was performed at rest. The examination was performed on a SPECT/CT scanner, both attenuation and non-corrected datasets were reviewed. FINDINGS: DISTRIBUTION: The maximum perfused segment at stress is in the lateral wall. PERFUSION STUDY: The pattern of perfusion at stress is within normal limits, with the exception of small defect toward the inferior apex. GATED STUDY: There is intact wall motion and thickening without hypokinetic or dyskinetic segments. CONCLUSION: 1. Small matched defect towards the anterior apex. 2. No reversible perfusion defects to suggest ischemia. RISK CATEGORY: Intermediate (1-3% Annual Mortality Rate) Nabil Strange MD on February 02, 2017 at 16:33 Board Certified Radiologist. This report was verified electronically.
--- NOTE | 2017-02-02 19:14 | HHI.PR ---
Subjective Remarks No chest pain, no palpitations, no sob, no diaphoresis, no n/v Pt denies fever or chills. Pt c/o abdominal pain and poor appetite. Pt states that she has had abdominal pain since her stress test, but NO nausea. Objective Vitals Vital Signs Date Time Temp Pulse Resp B/P Pulse Ox O2 Delivery O2 Flow Rate FiO2 02/02/17 15:58 98.5 80 18 175/74 98 02/02/17 12:00 98.3 77 16 141/63 98 02/02/17 08:00 98.4 76 16 133/56 96 02/02/17 07:56 79 02/02/17 04:00 82 02/02/17 03:21 98.1 81 18 133/59 99 02/01/17 23:54 80 02/01/17 23:18 99.6 80 18 128/57 100 02/01/17 21:04 85 02/01/17 19:27 99.1 91 18 145/65 99 02/01/17 02/01/17 02/02/17 14:59 22:59 06:59 Intake Total 1157 ml 1140 ml Balance 1157 ml 1140 ml Intake Oral 240 ml 240 ml IV Total 917 ml 900 ml # Voids 1 2 Result Diagram: 02/02/17 0420 02/02/17 0420 Imaging Last Impressions Myocardial Perfusion Scan Nuc Med 02/02/17 0000 Signed Impressions: Service Date/Time: Thursday, February 02, 2017 13:59 - CONCLUSION: 1. Small matched defect towards the anterior apex. 2. No reversible perfusion defects to suggest ischemia. RISK CATEGORY: Intermediate (1-3%% Annual Mortality Rate) Nabil Strange MD Chest X-Ray 01/31/17 2302 Signed Impressions: Service Date/Time: January 22:59 - CONCLUSION: 1. No acute cardiopulmonary disease. Sonido Zazueta MD Objective Remarks GENERAL: This is a well-nourished, well-developed patient, in no apparent distress. CARDIOVASCULAR: Regular rate and rhythm without murmurs, gallops, or rubs. RESPIRATORY: Clear to auscultation. Breath sounds equal bilaterally. No wheezes , rales, or rhonchi. GASTROINTESTINAL: Abdomen soft, non-tender, nondistended. Normal active bowel sounds MUSCULOSKELETAL: Extremities without clubbing, cyanosis, or edema. NEURO: Alert & Oriented x4 to person, place, time, situation. Moves all ext x4 A/P Problem List: (1) Chest pain Status: Acute Plan: - h/o CAD with coronary stents, h/o HTN - serial cardiac enzymes --> not elevated - serial EKGs --> NO acute ischemic changes - echocardiogram (02/02/17) --> EF 55-60%, grade I diastolic dysfunction - lexiscan (02/02/17) --> NO reversible perfusion defects - LDL 40 (02/02/17) - ASA - f/u with [facility] in 3 weeks - anticipate d/c to home 02/03/17 (2) Fever Status: Acute Plan: - unclear etiology - NO source of infection identified at this time - Pt denies fever, chills, dysuria, cough, or diarrhea - NO fever since admission - Tmax 99.1F - stop antibiotics and observe - blood culture (01/31/17) --> NGTD - observe (3) Abdominal pain Status: Acute Plan: - pt denies n/v - pt denies constipation, last BM this evening (02/02/17) - obtain KUB - start protonix - observe Glenn Vyas DO Feb 02, 2017 19:14
--- NOTE | 2017-02-02 20:18 | RADRPT ---
EXAM DATE/TIME: 02/02/2017 20:09 [facility] COMPARISON: No previous studies available for comparison. INDICATIONS : Abdominal pain MEDICAL HISTORY : Hypertension. Diabetes mellitus type II. SURGICAL HISTORY : None. ENCOUNTER: Initial ACUITY: 2 days PAIN SCORE: Non-responsive. LOCATION: Bilateral abdomen FINDINGS: Supine view of the abdomen was performed. The abdominal bowel gas pattern is normal. No abnormal ma sses, calcifications, or organomegaly is seen. Clips in the right abdomen. There also appear to be so me calcifications. The osseous structures are unremarkable. CONCLUSION: 1. No bowel obstruction. 2. Postsurgical changes. 3. Calcifications right abdomen likely benign pancreatic calcifications. Nabil Strange MD on February 02, 2017 at 20:16 Board Certified Radiologist. This report was verified electronically.
[2017-02-02] MEDS ORDERED: PANTOPRAZOLE SODIUM 40 MG VIAL IV PUSH SCH (21:00)
[2017-02-02] MEDS: ATORVASTATIN 40 MG TAB PO SCH (21:00)
[2017-02-03 00:14] VITALS: BP 127/58; PULSE 87; RESP 18; TEMP 97.9; O2SAT 97
[2017-02-03] MEDS: VANCOMYCIN 1,000 MG/NS 250 ML IV SCH ×2 (01:23)
[2017-02-03 03:42] VITALS: PULSE 63
[2017-02-03 04:06] VITALS: BP 143/65; PULSE 75; RESP 18; TEMP 99; O2SAT 97
[2017-02-03] MEDS: LEVOTHYROXINE SODIUM 100 MCG TAB PO SCH (05:48)
[2017-02-03] MEDS: INSULIN ASPART SUPPLEMENTAL SCALE SQ SCH ×2 (05:54→11:00)
[2017-02-03] MEDS: DOCUSATE SODIUM 50 MG/SENNA 8.6 MG TAB PO SCH (07:16)
[2017-02-03 07:41] VITALS: BP 146/67; PULSE 75; RESP 14; TEMP 98.8; O2SAT 97
[2017-02-03 08:41] VITALS: PULSE 73
[2017-02-03] MEDS: SODIUM CHLOR 0.45% 1000 ML INJ 1,000 ML IV SCH (09:23)
[2017-02-03] MEDS: metFORMIN HCL 500 MG TAB PO SCH (09:24)
[2017-02-03] MEDS: ASPIRIN 81 MG CHEW TAB CHEW SCH (09:24)
[2017-02-03] MEDS: SODIUM CHLORIDE 0.9% FLUSH 10 ML FLUSH IV FLUSH SCH (09:24)
--- NOTE | 2017-02-03 11:18 | HHI.PR ---
Subjective Remarks No new complaints. Patient denies chest pain or palpitations. Patient denies fever. Patient denies chills. Patient denies cough or dysuria. Abdominal pain has resolved. Patient has had a bowel movement. Patient is eager for discharge to home Objective Vitals Vital Signs Date Time Temp Pulse Resp B/P Pulse Ox O2 Delivery O2 Flow Rate FiO2 02/03/17 08:41 73 02/03/17 07:41 98.8 75 14 146/67 97 02/03/17 04:06 99.0 75 18 143/65 97 02/03/17 03:42 63 02/03/17 00:14 97.9 87 18 127/58 97 02/02/17 23:05 87 02/02/17 20:07 97 02/02/17 19:37 98.0 80 18 160/66 99 02/02/17 15:58 98.5 80 18 175/74 98 02/02/17 12:00 98.3 77 16 141/63 98 02/02/17 02/02/17 02/03/17 15:00 23:00 07:00 Intake Total 850 ml Output Total 1 ml Balance -1 ml 850 ml IV Total 850 ml Output Stool Total 1 ml # Voids 2 Result Diagram: 02/02/17 0420 02/02/17 0420 Imaging Last Impressions Myocardial Perfusion Scan Nuc Med 02/02/17 0000 Signed Impressions: Service Date/Time: Thursday, February 02, 2017 13:59 - CONCLUSION: 1. Small matched defect towards the anterior apex. 2. No reversible perfusion defects to suggest ischemia. RISK CATEGORY: Intermediate (1-3%% Annual Mortality Rate) Nabil Strange MD Chest X-Ray 01/31/17 2301 Signed Impressions: Service Date/Time: January 22:59 - CONCLUSION: 1. No acute cardiopulmonary disease. Sonido Zazueta MD Objective Remarks GENERAL: This is a well-nourished, well-developed patient, in no apparent distress. CARDIOVASCULAR: Regular rate and rhythm without murmurs, gallops, or rubs. RESPIRATORY: Clear to auscultation. Breath sounds equal bilaterally. No wheezes , rales, or rhonchi. GASTROINTESTINAL: Abdomen soft, non-tender, nondistended. Normal active bowel sounds MUSCULOSKELETAL: Extremities without clubbing, cyanosis, or edema. NEURO: Alert & Oriented x4 to person, place, time, situation. Moves all ext x4 A/P Problem List: (1) Chest pain Status: Acute Plan: - h/o CAD with coronary stents, h/o HTN - serial cardiac enzymes --> not elevated - serial EKGs --> NO acute ischemic changes - echocardiogram (02/02/17) --> EF 55-60%, grade I diastolic dysfunction - lexiscan (02/02/17) --> NO reversible perfusion defects - LDL 40 (02/02/17) - ASA - f/u with [facility] in 3 weeks - f/u with PCP, Dr. Veto Peralta in 1 week (2) Fever Status: Acute Plan: - unclear etiology - NO source of infection identified at this time - Pt denies fever, chills, dysuria, cough, or diarrhea - NO fever since admission - Tmax 99.10F - NO fever off antibiotics - blood culture (01/31/17) --> NGTD, 3d - observe (3) Abdominal pain Status: Acute Plan: - resolved - KUB (02/02/17) --> NO acute findings - continue Glenn Sue DO Feb 03, 2017 11:18
[2017-02-03] MEDS ORDERED: PROT40TA PO (11:19)
[2017-02-03 11:23] VITALS: BP 178/79; PULSE 77; RESP 15; TEMP 98; O2SAT 98
[2017-02-04] MEDS ORDERED: PHARMACY ORDERED LAB ONE (00:45)
--- NOTE | 2017-02-04 10:26 | EKG ---
Date Performed: 01/31/2017 Time Performed: 22:53:56 PTAGE: 81 years EKG: SINUS TACHYCARDIA POSSIBLE LEFT ATRIAL ENLARGEMENT POSSIBLE LEFT VENTRICULAR HYPERTROPHY PO SSIBLE anterior SEPTAL MYOCARDIAL INFARCTION - age indeterminate ABNORMAL ECG PREVIOUS TRACING 10/27/2015 10.49.54 DOCTOR: Nico Riley Interpretating Date/Time 02/04/2017 10:25:35
== END 2017-02-03 13:06 | disposition home or self-care (01) ==
LOC: NEPC 22:39 → NEDA 02-01 00:44 → NEPGCP 02-01 03:11
PROVIDERS: ADMIT Hospitalist; ATTEND Hospitalist
DX: R07.89 Other chest pain (principal); I10 Essential (primary) hypertension; E78.5 Hyperlipidemia, unspecified; I25.10 Atherosclerotic heart disease of native coronary artery without angina pectoris; R10.9 Unspecified abdominal pain; R50.9 Fever, unspecified; E03.9 Hypothyroidism, unspecified; E11.9 Type 2 diabetes mellitus without complications; Z79.84 Long term (current) use of oral hypoglycemic drugs; Z98.61 Coronary angioplasty status; Z85.3 Personal history of malignant neoplasm of breast; Z79.82 Long term (current) use of aspirin; Z79.899 Other long term (current) drug therapy; Z85.028 Personal history of other malignant neoplasm of stomach; M19.90 Unspecified osteoarthritis, unspecified site; Z92.21 Personal history of antineoplastic chemotherapy; Z92.3 Personal history of irradiation
CPT/HCPCS: 71010; 74000; 78452; 80048; 80053; 80061; 81001; 82550; 82552; 82948; 83605; 83690; 83735; 83880; 84484; 85007; 85025; 85027; 85610; 85730; 87040; 87086; 87804; 93005; 93017; 93306; 96374; 99285; A9502; C9113; G0378; J1815; J1885; J2785; J3370; J7040; J7050